=== PATIENT | male | born 2000 | race Caucasian/White ===

== ENCOUNTER 2023-08-19 09:54 | Emergency (ER) | payer MEDICARE, MEDICAID, SELFPAY ==
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
[2023-08-19 10:04] VITALS: BP 138/88; PULSE 108; O2SAT 97
[2023-08-19 10:12] VITALS: BP 150/82; PULSE 116; RESP 18; TEMP 36.3; O2SAT 96; BMI 38.3
[2023-08-19 10:18] VITALS: BP 150/82; PULSE 116; RESP 18; TEMP 36.3; O2SAT 96
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
--- NOTE | 2023-08-19 10:40 | PC.NURSE ---
Pt noted to have increase agitation due to not wanting to go back to [facility]. Able to be redirected and calmed by RNs.
--- NOTE | 2023-08-19 10:58 | PC.NURSE ---
Pt taken to CT scan in wheelchair with security and tech.
[2023-08-19] MEDS: LORazepam 1 MG TABLET 2 MG PO ×2 (11:11→14:16)
[2023-08-19] MEDS: HaloperidoL 5 MG TABLET PO ×2 (11:41→14:15)
[2023-08-19] MEDS: diphenhydrAMINE HCL 25 MG CAPSULE PO ×2 (11:41→14:15)
--- NOTE | 2023-08-19 13:04 | PC.NURSE ---
Report called to Josse Fu RN, requested they send a filled out section 21 via fax due to paperwork being blank that came with pt.
--- NOTE | 2023-08-19 14:17 | PC.NURSE ---
Pt having increased agitation, hitting TV and phone on the wall, yelling. Security and provider at bedside with RN attempted to calm and redirect pt. Pt agreed to take PO meds, medicated per JUN.
[2023-08-19 17:42] VITALS: BP 150/82; PULSE 116; RESP 18; TEMP 36.3; O2SAT 96
== END 2023-08-19 17:44 ==
PROVIDERS: Emergency Provider Emergency Medicine
DX: S06.0X0A Concussion without loss of consciousness, initial encounter (principal); R42 Dizziness and giddiness; M54.2 Cervicalgia; W01.0XXA Fall on same level from slipping, tripping and stumbling without subsequent striking against object, initial encounter; Y93.9 Activity, unspecified; Y92.9 Unspecified place or not applicable; Y99.8 Other external cause status
CPT/HCPCS: 70450; 72125; 99284